=== PATIENT | female | born 1975 | race Caucasian/White ===

== ENCOUNTER → 2020-02-09 11:44 | Outpatient (CLI) | payer OTHER, SELFPAY ==
--- NOTE | ~2020-02-09 | US_ITS ---
EXAMINATION: US thyroid DATE: 02/09/2020 12:05 INDICATION: Nontoxic single thyroid nodule. TECHNIQUE: Multiple ultrasound images of the thyroid were obtained. COMPARISON: None. FINDINGS: The right thyroid lobe measures 6.1 x 3.1 x 2.6 cm. The left thyroid lobe measures 5.7 x 3.3 x 2.3 c m. The thyroid demonstrates heterogeneous echogenicity. There are ill-defined nodules throughout the thyroid of similar ultrasound appearance without normal intervening parenchyma. IMPRESSION: 1. Multinodular goiter, likely benign. Reviewed, dictated and finalized at location A. 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
== END ==
PROVIDERS: PCP Physician Assistant; Visit Provider Physician Assistant
DX: E04.2 Nontoxic multinodular goiter (principal)
CPT/HCPCS: 76536

== ENCOUNTER 2020-11-16 00:36 | Day surgery (SDC) | payer OTHER, SELFPAY ==
[2020-10-27 12:16] VITALS: BMI 32.1
[2020-11-16 07:42] VITALS: BP 124/90; PULSE 95; RESP 16; TEMP 37.1; O2SAT 97; BMI 31.1
[2020-11-16] MEDS: LACTATED RINGERS 1,000 ML 150 ML IV CONT (07:54)
[2020-11-16 07:58] LABS: Glucose Point of Care 136 mg/dl (65-105)
--- NOTE | 2020-11-16 08:12 | P.PNAN_ITS ---
Anes - Initial Pre Proc Eval Procedure: Operation Date: 11/16/20 08:30 Proposed Procedures p Screening Colonoscopy - Rafita Flores MD Date/Time: 11/16/20 08:12 Surgeon: Rafita Flores MD Pre Op Diagnosis: neoplasm screening, family hx of colon ca Patient Data Age: 45 Gender: F Height: 1.63 m Weight: 82.4 kg Last Vital Signs Temp 98.7 F 11/16/20 07:42 Pulse 95 11/16/20 07:42 Resp 16 11/16/20 07:42 BP 124/90 11/16/20 07:42 Pulse Ox 97 11/16/20 07:42 Allergies Allergy/AdvReac Type Severity Reaction Status Date / Time codeine Allergy Unknown N/V Verified 11/16/20 07:41 Penicillins Allergy Unknown Unknown Verified 11/16/20 07:41 Home Medications Medication Instructions Recorded Confirmed Type dulaglutide [Trulicity] 0.75 mg SUBCUT WEEKLY 10/27/20 10/27/20 History levothyroxine 75 mcg PO DAILY 10/27/20 10/27/20 History metformin 2,000 mg PO HS 10/27/20 10/27/20 History rosuvastatin 5 mg PO DAILY 10/27/20 10/27/20 History spironolactone 100 mg PO DAILY 10/27/20 10/27/20 History Laboratory Tests 11/16/20 07:48 POC Capillary Glucose 136 mg/dl H mg/dl (65-105) Patient hx anesthesia problems: none Family hx anesthesia problems: none Results Review: All pre-operative results and documents have been reviewed as pa rt of the pre-operative evaluation. [facility] Past Medical History Medical History (Updated 11/16/20 @ 08:09 by Collins Cota MD) Diabetes Hyperlipidemia Social History Social History Smoking status: Never smoker Alcohol intake: never Substance use: never Substance use type: does not use Living arrangements: with family Spiritual care concerns: No Anes - Eval Final PreProcedure Day of Procedure 11/16/20 08:12 Patient weight: obese Heart: regular rate and rhythm Lungs: clear to auscultation Airway: Mallampati scale class II Neurological: alert and oriented Last oral intake: >/= 8 hours ASA classification: II Emergent: no Anesthetic plan: proceed Anesthesia type and monitoring: general GIVS and standard monitoring Results Review: All pre-operative results and documents have been reviewed as part of the pre-operative evaluation. Informed Consent: The patient's anesthetic plan and its attendant risks and benefits were discussed with the patient/family/POA. Questions were solicited and answers provided to the satisfaction of the patient/family/POA.
--- NOTE | 2020-11-16 08:19 | PM.HPGS ---
History of Present Illness History of Present Illness Consent: Risks, benefits, and alternatives have been discussed and questions answered. Patient agrees to proceed with procedure. Chief complaint: neoplasm screening, family hx of colon ca Narrative: Nu Law is a 45 year old female here for first colonoscopy, father had colon cancer Review of Systems Constitutional: Constitutional: Denies headache(s) and Denies weakness Eyes: Eyes: Denies blurry vision ENT: Reports Normal hearing present, Denies headache(s) and Denies neck pain Cardiovascular: Cardiovascular: Denies chest pain and Denies dyspnea Respiratory: Respiratory: Denies dyspnea Gastrointestinal: Gastrointestinal: Reports no additional gastrointestinal complaints Genitourinary: Genitourinary: Denies dysuria Musculoskeletal: Musculoskeletal: Denies neck pain Integumentary/Breasts: Skin/Breast: Denies dry skin Neurologic: Reports Normal hearing present, Denies headache(s) and Denies weakness Psychiatric: Psychiatric: Denies anxiety Endocrine: Endocrine: Denies change in body appearance Hematologic/Lymphatic: Hematologic/Lymphatic: Denies easy bleeding Allergic/Immunologic: Allergic/Immunologic: Denies urticaria PMF Past Medical History Medical History (Updated 11/16/20 @ 08:20 by Rafita Flores MD) Diabetes Family history of colon cancer in father Hyperlipidemia Social History Social History Smoking status: Never smoker Alcohol intake: never Substance use: never Substance use type: does not use Living arrangements: with family Spiritual care concerns: No Meds Home Medications and Allergies Home Medications Medication Instructions Recorded Confirmed Type dulaglutide [Trulicity] 0.75 mg SUBCUT WEEKLY 10/27/20 10/27/20 History levothyroxine 75 mcg PO DAILY 10/27/20 10/27/20 History metformin 2,000 mg PO HS 10/27/20 10/27/20 History rosuvastatin 5 mg PO DAILY 10/27/20 10/27/20 History spironolactone 100 mg PO DAILY 10/27/20 10/27/20 History Allergies Allergy/AdvReac Type Severity Reaction Status Date / Time codeine Allergy Unknown N/V Verified 11/16/20 07:41 Penicillins Allergy Unknown Unknown Verified 11/16/20 07:41 Vital Signs Vital Signs - 24 hr 11/16/20 07:42 Temperature 98.7 F Pulse Rate 95 Respiratory Rate 16 Blood Pressure 124/90 Pulse Oximetry 97 Exam Const: General: comfortable and no acute distress HENMT: General nose exam: Normal nares present Eyes: General: appearance normal, both eyes and all related structures Neck: Neck: no JVD Resp: Auscultation: clear to auscultation bilaterally Cardio: Rate: regular rate Rhythm: regular rhythm GI: Inspection: non-distended GI Palp: Yes Soft to palpation Skin: General skin exam: normal color Neuro: General: gait normal Speech: normal speech Extrem: General: normal to inspection Psych: Mental Status: mental status grossly normal Assessment and Plan Assessment and plan (1) Family history of colon cancer in father: Code(s): Z80.0 - Family history of malignant neoplasm of digestive organs Status: Acute Assessment and Plan: colonoscopy
[2020-11-16 08:42] VITALS: BP 115/71; PULSE 90; RESP 16; O2SAT 99
[2020-11-16 08:52] VITALS: BP 112/77; PULSE 86; RESP 16; O2SAT 99
[2020-11-16 09:02] VITALS: BP 111/77; PULSE 82; RESP 16; O2SAT 98
== END 2020-11-16 09:07 | disposition home or self-care (01) ==
PROVIDERS: PCP Physician Assistant; Visit Provider Internal Medicine Gastroenterology
PROC: 0DJD8ZZ Inspection of Lower Intestinal Tract, Via Natural or Artificial Opening Endoscopic (ICD-10-PCS; CPT 45378; principal; 2020-11-16 08:30)
DX: Z12.11 Encounter for screening for malignant neoplasm of colon (principal); D12.2 Benign neoplasm of ascending colon; K63.5 Polyp of colon; K57.30 Diverticulosis of large intestine without perforation or abscess without bleeding; K64.8 Other hemorrhoids; Z80.0 Family history of malignant neoplasm of digestive organs; E11.9 Type 2 diabetes mellitus without complications; E78.5 Hyperlipidemia, unspecified; Z79.84 Long term (current) use of oral hypoglycemic drugs; E66.9 Obesity, unspecified; Z68.31 Body mass index [BMI] 31.0-31.9, adult
CPT/HCPCS: 45385; 82948; 88305; J2704; J7120

== ENCOUNTER → 2022-03-19 09:59 | Outpatient (CLI) | payer OTHER, SELFPAY ==
--- NOTE | ~2022-03-19 | US_ITS ---
EXAMINATION: US thyroid DATE: 03/19/2022 10:23 INDICATION: Nontoxic multinodular goiter TECHNIQUE: Multiple ultrasound images of the thyroid were obtained. COMPARISON: 02/09/2020 FINDINGS: The right thyroid lobe measures 5.5 x 3.1 x 2.9 cm. The left thyroid lobe measures 6.1 x 3.3 x 2.6 c m. Heterogeneous density with coarsened echotexture throughout the thyroid. 1.8 cm wider than tall so lid slightly hypoechoic right thyroid nodule with ill-defined margins and without echogenic foci (TI- RADS 4, moderately suspicious , FNA if >=1.5 cm, annual followup is >=1 cm). There is a second 1.4 cm taller than wide solid isoechoic nodule with smooth margins and without echogenic foci in the inferi or right thyroid, also TI RADS 4. 1.5 cm solid round heterogeneously isoechoic to hypoechoic TI RADS 4 nodule with ill-defined margins and without echogenic foci in the deep mid left thyroid. 1.5 simila r wider than tall solid hypoechoic nodule with smooth well-defined margins at the upper pole of the l eft thyroid lobe, also TI RADS 4. IMPRESSION: Multinodular goiter with a couple TI RADS 4 nodules in both the left and right thyroid lobes. Recomme nd ultrasound-guided biopsy of the largest 1.8 cm TI RADS 4 right thyroid nodule. Reviewed, dictated and finalized at location A. 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 Recommend ultrasound-guided biopsy of the largest 1.8 cm TI RADS 4 right thyroid nodule.
--- NOTE | ~2022-03-19 | XR_ITS ---
EXAMINATION: XR UGI wo kub DATE: 03/19/2022 10:46 INDICATION: Dysphagia TECHNIQUE: The patient drank thick barium, gas-producing crystals, and thin barium. Conventional supi ne abdomen radiographs and fluoroscopy of the esophagus, stomach, and proximal small bowel were perfo rmed. Fluoroscopy exposure time was 1.7 minutes. The DAP for this procedure was 6.549 Gycm2. COMPARISON: None. FINDINGS: There is mild smooth narrowing of the cervical esophagus. Esophageal motility is normal. Th ere is no hiatal hernia. There was no gastroesophageal reflux with provocative maneuvers. The stomach and proximal small bowel show normal folding patterns. IMPRESSION: 1. Mild smooth narrowing of the cervical esophagus which may relate to multinodular goiter. Reviewed, dictated and finalized at location B. ING CUTTER IMPRESSION: 1. Mild smooth narrowing of the cervical esophagus which may relate to multinod ular goiter.
== END ==
PROVIDERS: PCP Physician Assistant; Visit Provider Physician Assistant
DX: E04.2 Nontoxic multinodular goiter (principal); R13.19 Other dysphagia
CPT/HCPCS: 74240; 76536

== ENCOUNTER 2022-03-26 12:39 | Outpatient (CLI) | payer OTHER, SELFPAY ==
--- NOTE | ~2022-03-26 | US_ITS ---
EXAMINATION: US FNA w image guidance DATE: 03/26/2022 14:21 INDICATION: Nontoxic single thyroid nodule. TECHNIQUE: The procedure and its benefits and risks were discussed with the patient. Risks specifically discusse d included bleeding. The patient verbalized understanding of the risks and agreed to proceed. The nec k was prepped and draped in the usual sterile manner. 1% lidocaine was used for local anesthesia. 6 passes were made with a 25G needle into the lesion under ultrasound guidance. There were no immedia te complications. FINDINGS: Grayscale ultrasound images demonstrate needles advanced into a 2.5 cm nodule in right thyroid lobe f or biopsy. IMPRESSION: 1. Ultrasound-guided fine needle aspiration of a right thyroid nodule. Reviewed, dictated and finalized at location A. COBBLER
== END 2022-03-26 12:40 | disposition home or self-care (01) ==
PROVIDERS: PCP Physician Assistant; Visit Provider Physician Assistant
DX: E04.1 Nontoxic single thyroid nodule (principal)
CPT/HCPCS: 10005; 88173; 88305

== ENCOUNTER 2023-04-12 10:16 | Emergency (ER) | payer OTHER, SELFPAY ==
--- NOTE | ~2023-04-12 | CT_ITS ---
EXAMINATION: CT abdomen pelvis w con DATE: 04/12/2023 12:16 INDICATION: Mid to lower right abdominal pain TECHNIQUE: Computed tomography (CT) of the abdomen and pelvis was performed with 100 mL Omnipaque-350 intravenous contrast. The dose Magdiel The dose-length product was 836.61 mGy-cm. COMPARISON: None FINDINGS: Small calcified right lower lobe nodule consistent with old granulomatous disease. Heart size is norm al. No pericardial or pleural effusion. Diffuse hepatic steatosis. Cholecystectomy clips at the gallb ladder fossa. Spleen, pancreas, bilateral adrenal glands and left kidney are normal. 5 mm macroscopic fat attenuation right renal angiomyolipoma. Moderate scattered colonic diverticulosis. There is foca l wall thickening and prominent inflammatory stranding at the proximal sigmoid colon consistent with diverticulitis. No abscess or free intraperitoneal gas or fluid. The uterus is not identified and has likely been surgically resected. There is some inflammatory stranding along the dome of the otherwis e normal-appearing bladder which appears to track from the region of diverticulitis. Bilateral adnexa are unremarkable. No pathologically enlarged abdominal or pelvic lymphadenopathy. Mild thoracolumbar spondylosis. IMPRESSION: 1. Radiographically uncomplicated sigmoid diverticulitis. 2. Diffuse hepatic steatosis. Reviewed, dictated and finalized at location A. S MERCHANDISER
[2023-04-12 10:59] VITALS: BP 140/90; PULSE 113; RESP 18; TEMP 36.6; O2SAT 98
--- NOTE | 2023-04-12 11:09 | ED.ABDPAIN ---
HPI - Abdominal Pain General Chief Complaint: Abdominal Pain Stated Complaint: ABD PAIN X3DAYS Time Seen by Provider: 04/12/23 11:08 Source: patient Mode of arrival: ambulatory Limitations: no limitations History of Present Illness HPI narrative: Nu is a 47-year-old female patient presenting to the ER today with complaints of mid lower abdominal pain that started 3:00 in the morning yesterday. Does report some mild nausea. No fever or chills. Denies any urinary symptoms. States she does take metformin that sometimes give her some GI upset. Related Data Home Medications Medication Instructions Recorded Confirmed dulaglutide 0.75 mg/0.5 mL 0.75 mg subcut WEEKLY 10/27/20 10/27/20 subcutaneous pen injector (Trulicity) levothyroxine 75 mcg tablet 75 mcg PO DAILY 10/27/20 10/27/20 metformin 500 mg tablet,extended 2,000 mg PO HS 10/27/20 10/27/20 release 24 hr rosuvastatin 5 mg tablet 5 mg PO DAILY 10/27/20 10/27/20 spironolactone 100 mg tablet 100 mg PO DAILY 10/27/20 10/27/20 Allergies Allergy/AdvReac Type Severity Reaction Status Date / Time codeine Allergy Unknown N/V Verified 04/12/23 10:17 Penicillins Allergy Unknown Unknown Verified 04/12/23 10:17 Review of Systems Review of Systems: Pertinent positives per HPI. Patient denies any fever, chills, rash, headache, visual changes, dizziness, cough, runny nose, sore throat, shortness of breath, chest pain, palpitations, constipation, or any urinary issues. PMFSH Past Medical History Medical History Diabetes Family history of colon cancer in father Hyperlipidemia Social History Social History Smoking status: Never smoker Alcohol intake: never Substance use: never Substance use type: does not use Living arrangements: with family Spiritual care concerns: No Comments At the time of my signature, I reviewed and agree with the nursing past medical, surgical, social, and family history. There is no relevant family history pertinent to the patient complaint. Exam Narrative: General: Well-developed, well nourished, in no apparent distress. Head: Normocephalic, atraumatic. Cardio: Regular rate and rhythm, s1 and s2 normal, no murmur appreciated. Resp: Clear to auscultation bilaterally, no rhonchi, rales, wheezing or rubs. Abdomen: Soft, pliable, bowel sounds present in all quadrants, mid lower abdomen tender to palpation, no organomegly, no CVAT tenderness. Course Course Emergency Course: Portions of this record may have been created with voice recognition software. Vital Signs Vital signs: Vital Signs Temperature 36.6 C 04/12/23 10:59 Pulse Rate 113 H 04/12/23 10:59 Respiratory Rate 18 04/12/23 10:59 Blood Pressure 140/90 04/12/23 10:59 Pulse Oximetry 98 04/12/23 10:59 Oxygen Delivery Room Air 04/12/23 10:59 Temperature 36.6 C 04/12/23 10:59 Pulse Rate 100 04/12/23 13:44 Respiratory Rate 19 04/12/23 13:44 Blood Pressure 136/95 H 04/12/23 13:44 Pulse Oximetry 99 04/12/23 13:44 Oxygen Delivery Room Air 04/12/23 10:59 Vital signs reviewed MDM - Abdominal Pain MDM Narrative Medical decision making narrative: At the time of visit patient is resting comfortably on the exam table. Patient appears to be nontoxic. Labs: CBC shows a white blood cell count 11.8, H&H of 12.6 and 38.9, and platelet count of 265, chemistry shows sodium level 139, potassium of 4.7, chloride 105, carbon dioxide 29, BUN of 8, creatinine 0.7, GFR greater than 60, glucose is 196, AST is 27 ALT is 37, alk-phos is 56, lipase is 56, urine shows 2+ glucose nitrate positive, 0-5 white blood cells, no bacteria seen Diagnostics: CT abdomen with contrast shows 1. Radiographically uncomplicated sigmoid diverticulitis 2. Diffuse hepatic steatosis. Plan: I suspect patient has sigmoid diverticulitis
[2023-04-12 11:31] LABS: Basophils Percent Auto 0.3 % (0.2-1.2); Eosinophils Absolute Auto 0.1 K/mm3 (0-0.3); Hematocrit 38.9 % (37.0-47.0); Hemoglobin 12.6 g/dL (12.0-15.0); Immature Granulocyte Absolute 0.04 K/mm3 (0.00-0.031); Immature Granulocyte Percent A 0.3 % (0-0.5); Lymphocytes Absolute Auto 1.47 K/mm3 (0.9-3.2); Lymphocytes Percent Auto 12.4 % (18.3-44.2); Mean Corpuscular HGB Conc 32.4 g/dl (32-36); Mean Corpuscular Hemoglobin 27.6 pg (26-34); Mean Corpuscular Volume 85.3 fl (80-100); Mean Platelet Volume 9.5 fl (7.4-10.4); Monocytes Absolute Auto 0.9 K/mm3 (0.1-0.6); Monocytes Percent Auto 7.3 % (2.6-8.5); Neutrophils Absolute Auto 9.3 K/mm3 (1.3-6.7); Neutrophils Percent Auto 78.7 % (45.5-73.1); Platelet Count Result 265 k/mm3 (150-375); Red Blood Count 4.56 M/mm3 (4.2-5.4); Red Cell Distribution Width 13.6 % (11.5-14.5); White Blood Count 11.8 K/mm3 (4.5-10.0)
[2023-04-12 11:36] LABS: Appearance Urine Clear (Clear); Bacteria Urine None Seen /hpf; Bilirubin Urine Negative (Negative); Blood Urine Negative (Negative); Color Urine Dark Yellow (Yellow); Glucose Urine UA 2+ mg/dL (Negative); Ketones Urine Negative (Negative); Leukocyte Esterase Ur Negative LEU/UL (Negative); Need Manual Microscopic Reviewed; Nitrate Urine Positive (Negative); Non Pathogenic Casts 0-2; Protein Urine Negative (Negative); RBC Urine 0-2 /hpf (0-2); Specific Grav Ur 1.005 (1.001-1.035); Squamous Epithelial Cell Urine None seen /hpf (Few); Urobilinogen Urine 0.2 mg/dL (<2.0); WBC Urine 0-5 /hpf; pH Urine 6.5 (5.0-9.0)
[2023-04-12 11:38] LABS: Add Urine Microscopic? YES
[2023-04-12 11:44] LABS: Alanine Aminotransferase 37 U/L (6-35); Albumin Level 4.5 g/dL (3.5-5.1); Alkaline Phosphatase 56 U/L (38-126); Anion Gap 5 mmol/L (8-16); Aspartate Amino Transferase 27 U/L (14-36); Bilirubin,Total 0.8 mg/dL (0.2-1.3); Blood Urea Nitrogen 8 mg/dL (7-17); Calcium 9.3 mg/dL (8.4-10.2); Carbon Dioxide 29 mmol/L (22-30); Chloride 105 mmol/L (98-107); Estimated CRCL calculation 89 ml/min; Estimated Glomerular Filt Rate > 60; Glucose 196 mg/dL (65-110); Lipase 56 U/L (23-300); Potassium 4.7 mmol/L (3.4-5.0); Sodium 139 mmol/L (137-145)
--- NOTE | 2023-04-12 12:07 | PC.NURSE ---
Pt taken to CT at this time
[2023-04-12 13:44] VITALS: BP 136/95; PULSE 100; RESP 19; O2SAT 99
== END 2023-04-12 14:18 | disposition home or self-care (01) ==
PROVIDERS: Emergency Medicine; Emergency Provider Nurse Practitioner Family; PCP Physician Assistant
DX: K57.32 Diverticulitis of large intestine without perforation or abscess without bleeding (principal); N30.00 Acute cystitis without hematuria; E11.9 Type 2 diabetes mellitus without complications; E78.5 Hyperlipidemia, unspecified; K76.0 Fatty (change of) liver, not elsewhere classified; Z79.84 Long term (current) use of oral hypoglycemic drugs; Z79.85 Long-term (current) use of injectable non-insulin antidiabetic drugs
CPT/HCPCS: 36415; 74177; 80053; 81001; 81025; 83690; 85025; 99284; Q9967